=== PATIENT | male | born 1975 ===

== ENCOUNTER 2016-12-19 12:00 | Emergency (ER) | payer OTHER ==
[~2016-12-19] VITALS: Ht 182.9 cm; Wt 98.2 kg
[2016-12-19 12:02] VITALS: BP 141/85; PULSE 68; TEMP 98
[2016-12-19] MEDS ORDERED: FLEXERIL 1010 MG/TAB PO (12:05)
== END 2016-12-19 14:50 | disposition home or self-care (01) ==
LOC: COL.ER 12:00
DX: M79.672 Pain in left foot (principal); M79.671 Pain in right foot